=== PATIENT | female | born 1985 | race Caucasian/White ===

== ENCOUNTER → 2016-11-11 | Outpatient (CLI) | payer OTHER | END | disposition home or self-care (01) | LOC: LAB.O 20:15 | PROVIDERS: ATTEND Nurse Practitioner Family | DX: N39.0 Urinary tract infection, site not specified (principal); R10.84 Generalized abdominal pain ==

== ENCOUNTER → 2018-07-30 | Outpatient (CLI) | payer OTHER ==
--- NOTE | 2018-07-30 16:29 | MRI ---
EXAM DESCRIPTION: Cervical Spine: MRI. CLINICAL HISTORY: 33 years Female RADICULOPATHY COMPARISON: Radiographs of the cervical spine 07/29/2018. TECHNIQUE: Multiplanar, high-field MRI, multiple sequences, non-contrast Cervical spine. FINDINGS: C3-C4: Disc desiccation. Disc space maintained. Posterior left paracentral 3 mm disc bulge, not abutting the cord. Small uncinate spur on the right. Mild neural foraminal narrowing. Mild canal narrowing. Left neuroforamen patent. C4-C5: Disc desiccation and minimal disc space loss. Posterior midline and right paracentral 3 to 4 mm right paracentral disc bulge abutting the right ventral cord. Left uncinate spur and minimal neural foraminal narrowing. Right neural foramen is patent. The disc may be also abutting the exiting right C5 nerve root. Right paracentral moderate canal narrowing. Bilateral facets are negative. C5-6: Disc space maintained with minimal disc desiccation. No significant bulging. Canal and neural foramina are patent. Bilateral facets are negative. C6-C7: Disc desiccation and minimal disc space loss. Left uncinate spur causing moderate neural foraminal narrowing. Smaller spur on the right with minimal neural foraminal narrowing. Posterior midline disc bulge. Mild canal narrowing. Bilateral facets are negative. Normal signal in the remaining discs with no bulging. Disc spaces preserved. Canal and neural foramina are patent. Facets are unremarkable. Spinal alignment neutral. No cord compression or cord edema. Atlantoaxial joint is unremarkable. Base of the cerebellar tonsils is at the level of the foramen magnum. Paravertebral soft tissues showing 1.5 cm Bright T2 lesion in the upper pole right thyroid lobe at the level of the C7-T1 disc space. Almost 1 cm AP and craniocaudal axis distance. Right lobe is larger than the left lobe and the isthmus.. 1.25 x 1.3 cm cystic lesion anterior to the airway between the anterior scalene muscles at the level of the submandibular glands and inferior to the tongue base and floor the mouth. Vertebral bodies are not compressed at any level. Normal marrow signal in the remaining vertebral bodies and the posterior elements. IMPRESSION: 1. Left paracentral 3 mm C3-4 disc bulge not abutting the cord. Mild canal narrowing. Mild right neural foraminal narrowing by uncinate spur. 2. Right posterior paramedian 3 to 4 cm C4-5 Disc bulge abutting the cord and possibly abutting the exiting right C5 nerve. Right paracentral moderate canal narrowing. Right neuroforamen is patent. 3. Incidental thyroid nodule or cyst in the upper pole of the left thyroid gland. With transverse dimension 1.5 cm, [facility] Best Practice recommendations are that ultrasound follow-up is recommended. Please see guidelines below*. 4. Cystic lesion anterior to the airway and the midline strap muscles at the level of the submandibular glands at the level of the C3 vertebral body. Ultrasound follow-up is also recommended for this lesion. Correlate for history of previous trauma or tracheostomy. * 1.Further evaluation by thyroid US recommended for: -Solitary ITN >= 1.5 cm in axial plane in pts >= 35 years of age 5.These recommendations do not apply to pts. w/ increased risk for thyroid cancer or pts. with symptomatic thyroid disease. Recommendations for f/u of Incidental Thyroid Nodules (ITN) found on CT, MR, NM and Extrathyroidal US are based upon the ACR white paper and [place] 3-tiered system for managing ITNs: J Am Sasha Radiol. 2015 Aug;12(2): 143-50 Electronically signed by: Lauro Boyer MD 07/30/2018 4:28 PM [employer] SUPER[employer]OR
== END ==
LOC: MRI 11:59
PROVIDERS: ATTEND Family Medicine
DX: M50.91 Cervical disc disorder, unspecified, high cervical region (principal); E04.1 Nontoxic single thyroid nodule

== ENCOUNTER → 2019-02-02 | Outpatient (CLI) | payer OTHER ==
--- NOTE | 2019-02-03 09:05 | RAD ---
EXAM DESCRIPTION: KUB CLINICAL HISTORY: 33 years Female, UNSPECIFIED RENAL COLIC COMPARISON: None. FINDINGS: Moderate amount of colonic stool and gas without dilated small bowel loops. Suture line in the right lower quadrant. No left or right-sided urinary tract calculus. An IUD is present in the pelvis just right of midline. No concerning bone lesion. IMPRESSION: No radiographically apparent left or right-sided urinary tract calculus. Electronically signed by: Don Tomlin MD 02/03/2019 9:03 AM CDT
== END ==
LOC: RAD 17:11
PROVIDERS: ATTEND Nurse Practitioner Family
DX: N23 Unspecified renal colic (principal)